=== PATIENT | female | born 1990 | race Two or more races ===

== ENCOUNTER 2024-11-17 18:06 | Emergency (ER) | payer MEDICAID, SELFPAY ==
[2024-11-17 18:43] VITALS: BP 100/64; PULSE 118; RESP 18; TEMP 37.3; O2SAT 99; BMI 20.3
--- NOTE | 2024-11-17 19:07 | EDNOTE_ITS ---
Upper Respiratory Inf. RME/HPI General Chief Complaint: Flu Like Symptoms Stated Complaint: FLU LIKE SYMPTOMS Time Seen by Provider: 11/17/24 19:03 Arrival date/time: 11/17/24 18:06 34F with no significant PMH presents to ED with several days of cough, body aches, and fevers/chills. Patient was diagnosed with the flu yesterday and states Tylenol, Tamiflu, and Promethazine aren't enough for body aches. Limitations: no limitations Related Data Previous Rx's ?Medication ?Instructions ?Recorded ibuprofen 400 mg tablet 400 mg PO TID PRN pain #14 t abs 07/03/22 loperamide 2 mg capsule (Imodium 2 mg PO Q6H PRN loose stool #14 01/03/23 A-D) caps ondansetron 4 mg disintegrating 4 mg PO Q8H PRN nausea and 01/03/23 tablet vomiting #10 tabs ibuprofen 400 mg tablet 400 mg PO Q8H PRN fever or p ain 11/17/24 #30 tabs Allergies Allergy/AdvReac Type Severity Reaction Status Date / Time No Known Allergies Allergy Verified 11/17/24 18:11 Review of Systems Review of Systems Systems Reviewed: All systems reviewed, normal except as documented Constitutional Constitutional: Reports as per HPI, Reports body ache(s), Reports chills, Reports fever(s) and Denies headache(s) ENT Ears, Nose, Mouth, and Throat: Denies disequilibrium and Denies headache(s) Cardiovascular Cardiovascular: Reports system reviewed and no additional complaints, except as documented, Denies chest pain and Denies dyspnea Respiratory Respiratory: Reports system reviewed and no additional complaints, except as documented, Reports as per HPI, Reports cough and Denies dyspnea Gastrointestinal Gastrointestinal: Reports system reviewed and no additional complaints, except as documented, Denies abdominal pain, Denies nausea and Denies vomiting Neurologic Neurologic: Reports system reviewed and no additional complaints, except as documented, Denies confusion, Denies disequilibrium and Denies headache(s) Psychiatric Psychiatric: Denies confusion Past Medical History Past Medical History CARDIAC: Negative Cardiac Disorders or Congestive Heart Failure RESPIRATORY: Negative Chronic Obstructive Pulmonary Disease (COPD) or Asthma GENITOURINARY: Negative Renal Disease ENDOCRINE: Negative Diabetes Mellitus Type 1 or Diabetes Mellitus Type 2 HEMATOLOGIC: Negative Sickle Cell Disease Social History SMOKING STATUS: Never smoker ED Exam General Limitations: Present no limitations General appearance: Present alert and in no apparent distress Head Head exam: Present atraumatic Eye Eye exam: Present normal appearance, PERRL and EOMI ENT ENT exam: Present normal exam, normal oropharynx and mucous membranes moist Neck Neck exam: Present normal inspection, full ROM and trachea midline Chest Chest inspection: Present normal inspection and symmetric chest wall rise Respiratory Respiratory exam: Present normal lung sounds bilaterally Cardiovascular Cardiovascular exam: Present regular rate, normal rhythm and normal heart sounds Abdominal Exam Abdominal exam: Present soft and normal bowel sounds Extremities Exam Extremities exam: Present normal inspection and full ROM Back Exam Back exam: Present normal inspection and full ROM Neurological Exam Neurological exam: Present alert, oriented X3 and CN II-XII intact Psychiatric Psychiatric exam: Present normal affect and normal mood Skin Skin exam: Present warm, dry, intact and normal color Course Quality Measures none Orders Category Date Time Status Ibuprofen Tab [Motrin Tab] Med 11/17/24 19:03 Discontinued 400 mg PO X1 ONE Vital Signs Vital signs: Vital Signs Temperature 99.2 F 11/17/24 18:43 Pulse Rate 118 H 11/17/24 18:43 Respiratory Rate 18 11/17/24 18:43 Blood Pressure 100/64 11/17/24 18:43 Pulse Oximetry (%) 99 11/17/24 18:43 Oxygen Delivery Method Room Air 11/17/24 18:43 O2 at 99% on RA and WNLs Upper Respiratory Infection MDM Narrative MDM Narrative:: 34F with no significant PMH presents to ED with several days of cough, body aches, and fevers/chills. Patient was diagnosed with the flu yesterday and states Tylenol, Tamiflu, and Promethazine aren't enough for body aches. Physical exam reveals nasal congestion, but clear lungs. Normal pupil response and EOM. No neck tenderness. ROM intact. Patient is afebrile, calm, and alert. Gait normal. NSAID education and meds given. Patient data External records reviewed:: [facility] previous records Clinical information provided by:: patient Social determinants that could affect healthcare access:: none Patient has the following chronic illnesses:: none How is presenting disease/condition affected by chronic disease/condition?: no chronic disease Evaluation data The following diagnostics were reviewed and interpreted by me:: other (specify) (none) Lab and/or radiology exams considered but not ordered:: not ordered Interpretation Summary: n/a Medications / Prescriptions Medications or Prescriptions considered but not ordered:: ordered Medication administrations:: Medication Administration History Discontinued Medications Ibuprofen (Ibuprofen Tab 400 Mg Tablet) 400 mg PO X1 ONE Stop: 11/17/24 19:04 above Consultations Consultation(s) initiated? (list below): No Diagnosis Upper Respiratory Differential Diagnosis: upper respiratory infection, croup, otitis media, sinusitis, viral infection, bronchitis, influenza and pharyngitis Most likely diagnosis given after review of the tests above:: influenza Admission Indicated Admission indicated?: not indicated Admission Request Was there a request for admission?: No Disposition Plan Disposition Plan: Discharge Discharge Attestation Discharge Attestation: The patient and all family members were given an opportunity to ask questions and understood the discharge instructions. Discharge instructions specifically effects, indications for sooner follow up or return to the emergency department, and the expected course of current diagnosis. Patient condition: Stable Discharge Plan Plan Patient Disposition: HOME (Self Care) Disposition Comment: Stable Prescriptions/Referrals Prescriptions/Med Rec: New ibuprofen 400 mg tablet 400 mg PO Q8H PRN (Reason: fever or pain) Qty: 30 0RF No Action ibuprofen 400 mg tablet 400 mg PO TID PRN (Reason: pain) Qty: 14 0RF loperamide [Imodium A-D] 2 mg capsule 2 mg PO Q6H PRN (Reason: loose stool) Qty: 14 0RF ondansetron 4 mg tablet,disintegrating 4 mg PO Q8H PRN (Reason: nausea and vomiting) Qty: 10 0RF Referrals: No Primary/Family,Physician [Primary Care Provider] - In 1 week Problem List Clinical Impression: Influenza Patient/Caregiver Discharge Instructions Education Materials: ED Influenza (Adult) Additional Instructions: Please follow-up with PCP within 24-48 hours and return immediately if symptoms worsen. Ibuprofen/Tylenol can be used simultaneously for greater fever/pain control. Print Language: Tajik Stand Alone Forms: Patient Portal Info Letter JUSTINA/NEELAM Supervising Physician JUSTINA/NEELAM Supervising Physician: Dr. Barroso
[2024-11-17] MEDS: IBUPROFEN TAB 400 MG TABLET PO (19:18)
== END 2024-11-17 19:27 | disposition home or self-care (01) ==
PROVIDERS: Emergency Provider Emergency Medicine
DX: J11.1 Influenza due to unidentified influenza virus with other respiratory manifestations (principal)
CPT/HCPCS: 99282; A9270

== ENCOUNTER 2025-01-04 00:31 | Emergency (ER) | payer SELFPAY ==
[2025-01-04 00:33] VITALS: BMI 17.5
--- NOTE | 2025-01-04 00:56 | XR_ITS ---
Examination: Foot, left, 3 views Technique: AP, oblique, lateral views foot, 3 views Date and time of exam: January 04, 2025 0148 hours INDICATIONS: Injury to the foot today, foot pain FINDINGS: No acute fracture No dislocation No foreign body IMPRESSION: No acute fracture
[2025-01-04 00:57] VITALS: BP 113/76; PULSE 79; RESP 16; TEMP 36.6; O2SAT 99
--- NOTE | 2025-01-04 03:27 | PRELIM_ITS ---
Radiographs of the left foot (three views). January 04, 2025 at 0148 hours Clinical History: Something fell on 1st and 2nd toes PT dropped something heavy on the toes. Comparison: No prior study is available for comparison. Findings: There is no evidence of fracture or dislocation. The visualized bones are of normal configuration and density. The visualized joints are normal in configuration and alignment. The periarticular soft tissues are normal. Impression: No evidence of fracture or dislocation. Report Electronically Signed By: Leon Veliz 01/04/2025 3:35:46 AM [EST]
--- NOTE | 2025-01-04 03:44 | PD.EDANKLE ---
Lower Extremity Injury RME/HPI General Chief Complaint: Ankle/Foot Injury Stated Complaint: RT FOOT INJURY, WORKMANS COMP Time Seen by Provider: 01/04/25 00:56 Arrival date/time: 01/04/25 00:31 34F with no significant PMH presents to ED with L 1st and 2nd toe pain after something heavy fell on it at work. Limitations: no limitations Related Data Previous Rx's ?Medication ?Instructions ?Recorded ibuprofen 400 mg tablet 400 mg PO TID PRN pain #14 tabs 07/03/22 loperamide 2 mg capsule (Imodium 2 mg PO Q6H PRN loose stool #14 01/03/23 A-D) caps ondansetron 4 mg disintegrating 4 mg PO Q8H PRN nausea and 01/03/23 tablet vomiting #10 tabs ibuprofen 400 mg tablet 400 mg PO Q8H PRN fever or pain 11/17/24 #30 tabs Allergies Allergy/AdvReac Type Severity Reaction Status Date / Time No Known Allergies Allergy Verified 11/17/24 18:11 Review of Systems Review of Systems Systems Reviewed: All systems reviewed, normal except as documented Constitutional Constitutional: Reports system reviewed and no additional complaints, except as documented, Denies fever(s) and Denies headache(s) ENT Ears, Nose, Mouth, and Throat: Denies disequilibrium and Denies headache(s) Cardiovascular Cardiovascular: Reports system reviewed and no additional complaints, except as documented, Denies chest pain and Denies dyspnea Respiratory Respiratory: Reports system reviewed and no additional complaints, except as documented, Denies cough and Denies dyspnea Gastrointestinal Gastrointestinal: Reports system reviewed and no additional complaints, except as documented, Denies abdominal pain, Denies nausea and Denies vomiting Musculoskeletal Musculoskeletal: Reports as per HPI and Reports arthralgias Neurologic Neurologic: Reports system reviewed and no additional complaints, except as documented, Denies confusion, Denies disequilibrium and Denies headache(s) Psychiatric Psychiatric: Denies confusion Past Medical History Past Medical History CARDIAC: Negative Cardiac Disorders or Congestive Heart Failure RESPIRATORY: Negative Chronic Obstructive Pulmonary Disease (COPD) or Asthma GENITOURINARY: Negative Renal Disease ENDOCRINE: Negative Diabetes Mellitus Type 1 or Diabetes Mellitus Type 2 HEMATOLOGIC: Negative Sickle Cell Disease Social History SMOKING STATUS: Never smoker ED Exam General Limitations: Present no limitations General appearance: Present alert and in no apparent distress Head Head exam: Present atraumatic Eye Eye exam: Present normal appearance, PERRL and EOMI ENT ENT exam: Present normal exam, normal oropharynx and mucous membranes moist Neck Neck exam: Present normal inspection, full ROM and trachea midline Chest Chest inspection: Present normal inspection and symmetric chest wall rise Respiratory Respiratory exam: Present normal lung sounds bilaterally Cardiovascular Cardiovascular exam: Present regular rate, normal rhythm and normal heart sounds Abdominal Exam Abdominal exam: Present soft and normal bowel sounds Extremities Exam Extremities exam: Present full ROM Expanded Lower Extremity Exam Foot/toe exam: Present full ROM (L 1st and 2nd toes), tenderness and swelling Back Exam Back exam: Present normal inspection and full ROM Neurological Exam Neurological exam: Present alert, oriented X3 and CN II-XII intact Psychiatric Psychiatric exam: Present normal affect and normal mood Skin Skin exam: Present warm, dry, intact and normal color Course Quality Measures none Orders Category Date Time Status Crutches .NOW Care 01/04/25 00:56 Active XR foot comp LT min 3V Stat Exams 01/04/25 00:56 Taken Vital Signs Vital signs: Vital Signs Temperature 97.8 F 01/04/25 00:57 Pulse Rate 79 01/04/25 00:57 Respiratory Rate 16 01/04/25 00:57 Blood Pressure 113/76 01/04/25 00:57 Pulse Oximetry (%) 99 01/04/25 00:57 Oxygen Delivery Method Room Air 01/04/25 00:57 O2 at 99% on RA and WNLs Extremity Injury, Lower MDM Narrative MDM Narrative:: 34F with no significant PMH presents to ED with L 1st and 2nd toe pain after something heavy fell on it at work. Physical exam reveals L 1st and 2nd toe tenderness and swelling. ROM mostly intact. Patient is afebrile, calm, and alert. XR no fx. Given rufina tape, crutch and community health counselor. Patient data External records reviewed:: [facility] previous records Clinical information provided by:: patient Social determinants that could affect healthcare access:: none Patient has the following chronic illnesses:: none How is presenting disease/condition affected by chronic disease/condition?: no chronic disease Evaluation data The following diagnostics were reviewed and interpreted by me:: radiology exam(s) Lab and/or radiology exams considered but not ordered:: ordered Interpretation Summary: above Medications / Prescriptions Medications or Prescriptions considered but not ordered:: not ordered Medication administrations:: n/a Consultations Consultation(s) initiated? (list below): No Diagnosis Extremity Injury, Lower Differential Diagnosis: ankle sprain and strain, acute internal derangement of knee, puncture wound of foot, fracture of toe, ankle fracture and other (foot contusion) Most likely diagnosis given after review of the tests above:: foot contusion Admission Indicated Admission indicated?: not indicated Admission Request Was there a request for admission?: No Disposition Plan Disposition Plan: Discharge Discharge Attestation Discharge Attestation: The patient and all family members were given an opportunity to ask questions and understood the discharge instructions. Discharge instructions specifically effects, indications for sooner follow up or return to the emergency department, and the expected course of current diagnosis. Patient condition: Stable Discharge Plan Plan Patient Disposition: HOME (Self Care) Disposition Comment: Stable Prescriptions/Referrals Prescriptions/Med Rec: No Action ibuprofen 400 mg tablet 400 mg PO TID PRN (Reason: pain) Qty: 14 0RF loperamide [Imodium A-D] 2 mg capsule 2 mg PO Q6H PRN (Reason: loose stool) Qty: 14 0RF ondansetron 4 mg tablet,disintegrating 4 mg PO Q8H PRN (Reason: nausea and vomiting) Qty: 10 0RF ibuprofen 400 mg tablet 400 mg PO Q8H PRN (Reason: fever or pain) Qty: 30 0RF Referrals: Justice Aguirre MD [Primary Care Provider] - In 1 week Problem List Clinical Impression: Contusion of foot Patient/Caregiver Discharge Instructions Education Materials: ED Foot Contusion Additional Instructions: Please follow-up with PCP within 24-48 hours and return immediately if symptoms worsen. If problem persists, recommend outpatient PT and/or MRI follow-up. In the meantime, rest, use ice/heat, and/or compression. Print Language: Vietnamese Stand Alone Forms: Patient Portal Info Letter JUSTINA/NEELAM Supervising Physician JUSTINA/NEELAM Supervising Physician: Dr. Ragsdale
== END 2025-01-04 03:55 | disposition home or self-care (01) ==
PROVIDERS: Emergency Provider Emergency Medicine; PCP Family Medicine
DX: S90.32XA Contusion of left foot, initial encounter (principal); W20.8XXA Other cause of strike by thrown, projected or falling object, initial encounter; Y99.0 Civilian activity done for income or pay
CPT/HCPCS: 73630; 99283

== ENCOUNTER 2025-02-27 08:16 | Emergency (ER) | payer MEDICAID, SELFPAY ==
[2025-02-27 08:25] VITALS: BP 122/79; PULSE 77; RESP 16; TEMP 36.7; O2SAT 98
--- NOTE | 2025-02-27 08:34 | PD.EDNV ---
Nausea/Vomit./Diarrhea-RME/HPI General Chief complaint: Abdominal Pain Stated complaint: ABD PAIN, DIARRHEA; [facility] YESTERDAY Time Seen by Provider: 02/27/25 08:21 Arrival date/time: 02/27/25 08:16 34-year-old female presents to the emergency department today for complaints of abdominal cramping, nausea and diarrhea patient reports with [facility] yesterday gave her a course of antibiotics for the flu patient reports he was checked for the flu as well strep throat yesterday both which came back negative patient was given a prescription for Augmentin Limitations: no limitations Related Data Previous Rx's ?Medication ?Instructions ?Recorded ibuprofen 400 mg tablet 400 mg PO TID PRN pain #14 tabs 07/03/22 loperamide 2 mg capsule (Imodium 2 mg PO Q6H PRN loose stool #14 01/03/23 A-D) caps ondansetron 4 mg disintegrating 4 mg PO Q8H PRN nausea and 01/03/23 tablet vomiting #10 tabs ibuprofen 400 mg tablet 400 mg PO Q8H PRN fever or pain 11/17/24 #30 tabs ibuprofen 400 mg tablet 400 mg PO Q8H PRN fever or pain 02/27/25 #30 tabs loperamide 2 mg capsule (Imodium 2 mg PO Q6H PRN loose stool #14 02/27/25 A-D) caps ondansetron 4 mg disintegrating 4 mg PO Q8H PRN nausea and 02/27/25 tablet vomiting #10 tabs Allergies Allergy/AdvReac Type Severity Reaction Status Date / Time No Known Allergies Allergy Verified 02/27/25 08:22 Review of Systems Review of Systems Systems Reviewed: All systems reviewed, normal except as documented Constitutional Constitutional: Reports system reviewed and no additional complaints, except as documented, Denies fever(s) and Denies headache(s) Eyes Eyes: Reports system reviewed and no additional complaints, except as documented and Denies blurry vision ENT Ears, Nose, Mouth, and Throat: Reports system reviewed and no additional complaints, except as documented, Denies headache(s), Denies nasal congestion and Denies nasal discharge Cardiovascular Cardiovascular: Reports system reviewed and no additional complaints, except as documented, Denies chest pain and Denies dyspnea Respiratory Respiratory: Reports system reviewed and no additional complaints, except as documented, Denies chest congestion, Denies cough and Denies dyspnea Gastrointestinal Gastrointestinal: Reports system reviewed and no additional complaints, except as documented, Reports abdominal pain, Reports cramping, Reports loose stools and Reports nausea Integumentary/Breasts Skin/Breast: Reports system reviewed and no additional complaints, except as documented and Denies rash Neurologic Neurologic: Reports system reviewed and no additional complaints, except as documented, Reports as per HPI and Denies headache(s) Past Medical History Past Medical History CARDIAC: Negative Cardiac Disorders or Congestive Heart Failure RESPIRATORY: Negative Chronic Obstructive Pulmonary Disease (COPD) or Asthma GENITOURINARY: Negative Renal Disease ENDOCRINE: Negative Diabetes Mellitus Type 1 or Diabetes Mellitus Type 2 HEMATOLOGIC: Negative Sickle Cell Disease Social History SMOKING STATUS: Never smoker ED Exam General Limitations: Present no limitations General appearance: Present alert and in no apparent distress Head Head exam: Present atraumatic, normocephalic and normal inspection Eye Eye exam: Present normal appearance, PERRL and EOMI ENT ENT exam: Present normal exam, normal oropharynx and mucous membranes moist Neck Neck exam: Present normal inspection, full ROM and trachea midline Chest Chest inspection: Present normal inspection and symmetric chest wall rise Respiratory Respiratory exam: Present normal lung sounds bilaterally; Absent respiratory distress Cardiovascular Cardiovascular exam: Present regular rate, normal rhythm and normal heart sounds Abdominal Exam Abdominal exam: Present soft and normal bowel sounds; Absent distention, tenderness, guarding, rebound, rigidity, Leach's sign, Rovsing's sign or tenderness at McBurney's Point Abdominal tenderness: Absent RLQ Extremities Exam Extremities exam: Present normal inspection and full ROM Back Exam Back exam: Present normal inspection and full ROM Neurological Exam Neurological exam: Present alert, oriented X3 and CN II-XII intact Psychiatric Psychiatric exam: Present normal affect and normal mood Skin Skin exam: Present warm, dry, intact and normal color Course Quality Measures none Orders Category Date Time Status Loperamide [Imodium] Med 02/27/25 08:34 Discontinued 4 mg PO X1 ONE Ondansetron Odt [Zofran Odt] Med 02/27/25 08:34 Discontinued 4 mg PO X1 ONE Vital Signs Vital signs: Vital Signs Temperature 98.0 F 02/27/25 08:25 Pulse Rate 77 02/27/25 08:25 Respiratory Rate 16 02/27/25 08:25 Blood Pressure 122/79 02/27/25 08:25 Pulse Oximetry (%) 98 02/27/25 08:25 Oxygen Delivery Method Room Air 02/27/25 08:25 O2 saturation 98% room air within normal limits Nausea/Vomiting/Diarrhea MDM Narrative MDM Narrative:: 34-year-old female presents to the emergency department today for complaints of abdominal cramping, nausea and diarrhea patient reports with [facility] yesterday gave her a course of antibiotics for the flu patient reports he was checked for the flu as well strep throat yesterday both which came back negative patient was given a prescription for Augmentin On exam patient well-appearing patient does not appear ill or toxic in no acute distress Based on symptomatology symptoms are highly consistent with viral illness Patient be given a course of Zofran as well as Imodium as well as ibuprofen Explained to the patient should her symptoms persist or worsen she is to return for reevaluation On exam patient has soft nontender abdomen Patient data External records reviewed:: [facility] previous records Clinical information provided by:: patient Social determinants that could affect healthcare access:: none Patient has the following chronic illnesses:: None How is presenting disease/condition affected by chronic disease/condition?: no chronic disease Evaluation data The following diagnostics were reviewed and interpreted by me:: other (specify) (N/A) Lab and/or radiology exams considered but not ordered:: Consider not ordered Interpretation Summary: N/A Medications / Prescriptions Medications / Prescriptions considered but not ordered:: Given Medication administrations:: Medication Administration History Discontinued Medications Loperamide HCl (Loperamide 2 Mg Capsule) 4 mg PO X1 ONE Stop: 02/27/25 08:35 Last Admin: 02/27/25 08:41 Dose: 4 mg Documented By: NATE Ondansetron HCl (Ondansetron Odt 4 Mg Tabrap) 4 mg PO X1 ONE; Protocol Stop: 02/27/25 08:35 Last Admin: 02/27/25 08:41 Dose: 4 mg Documented By: NATE Given Consultations Consultation(s) initiated? (list below): No Diagnosis Nausea Differential Diagnosis: traveler's diarrhea, food poisoning, gastroenteritis, clostridium difficile infection and drug-induced nausea and vomiting Most likely diagnosis given after review of the tests above:: Viral infection Admission Indicated Admission indicated?: not indicated Admission Request Was there a request for admission?: No Disposition Plan Disposition Plan: Discharge Discharge Attestation Discharge Attestation: The patient and all family members were given an opportunity to ask questions and understood the discharge instructions. Discharge instructions specifically effects, indications for sooner follow up or return to the emergency department, and the expected course of current diagnosis. Patient condition: Stable Discharge Plan Plan Patient Disposition: HOME (Self Care) Discharge Disposition comment: Stable Patient condition on transfer: Stable Prescriptions/Referrals Prescriptions/Med Rec: New ibuprofen 400 mg tablet 400 mg PO Q8H PRN (Reason: fever or pain) Qty: 30 0RF loperamide [Imodium A-D] 2 mg capsule 2 mg PO Q6H PRN (Reason: loose stool) Qty: 14 0RF ondansetron 4 mg tablet,disintegrating 4 mg PO Q8H PRN (Reason: nausea and vomiting) Qty: 10 0RF No Action ibuprofen 400 mg tablet 400 mg PO TID PRN (Reason: pain) Qty: 14 0RF loperamide [Imodium A-D] 2 mg capsule 2 mg PO Q6H PRN (Reason: loose stool) Qty: 14 0RF ondansetron 4 mg tablet,disintegrating 4 mg PO Q8H PRN (Reason: nausea and vomiting) Qty: 10 0RF ibuprofen 400 mg tablet 400 mg PO Q8H PRN (Reason: fever or pain) Qty: 30 0RF Problem List Clinical Impression: Viral infection Patient/Caregiver Discharge Instructions Education Materials: ED Viral Syndrome (Adult) Additional Instructions: Please follow up with your primary care doctor in the next 24-48hrs for any worsening symptoms return here immediately Print Language: Central African Stand Alone Forms: Bryanna Award Info., Work/School Release, Patient Portal Info Letter JUSTINA/NEELAM Supervising Physician JUSTINA/NEELAM Supervising Physician: Dr domínguez
[2025-02-27] MEDS: LOPERAMIDE 2 MG CAPSULE 4 MG PO (08:41)
[2025-02-27] MEDS: ONDANSETRON ODT 4 MG TABRAP PO (08:41)
== END 2025-02-27 08:51 | disposition home or self-care (01) ==
LOC: SERX 08:48
PROVIDERS: Emergency Provider Emergency Medicine; PCP Family Medicine
DX: B34.9 Viral infection, unspecified (principal)
CPT/HCPCS: 99282; Q0162; A9270

== ENCOUNTER 2025-03-20 00:27 | Emergency (ER) | payer MEDICAID, SELFPAY ==
[2025-03-20] VITALS (13 sets, daily range): BP systolic 95–112; BP diastolic 54–79; PULSE 63–75; RESP 12–24; TEMP 36.1–36.8; O2SAT 97–100
--- NOTE | 2025-03-20 01:45 | PD.EDABDPN ---
ED Abdominal Pain RME/HPI General Chief Complaint: Abdominal Pain Stated complaint: Abdominal pain Time seen by provider: 03/20/25 05:57 Arrival date/time: 03/20/25 00:27 RME / HPI RME / HPI narrative: Dr. Lewis?s Main ED Evaluation: 34yo female with a history of gastritis presents to the ED for a chief complaint of epigastric pain that radiates to her back. Patient states she took 4 of her gastritis medication today, reporting her abdominal pain worsened. Patient reports associated nausea, diarrhea, and a headache. Patient states she took 2 tablets of ibuprofen that did not improve her symptoms. Patient states she was unable to tolerate her headache and abdominal pain, so she came in for evaluation. Patient reports associated sweating. Patient denies any fever, chills, vomiting, dysuria or any other associated symptoms. NKA. Related Data Previous Rx's ?Medication ?Instructions ?Recorded ibuprofen 400 mg tablet 400 mg PO TID PRN pain #14 tabs 07/03/22 loperamide 2 mg capsule (Imodium 2 mg PO Q6H PRN loose stool #14 01/03/23 A-D) caps ondansetron 4 mg disintegrating 4 mg PO Q8H PRN nausea and 01/03/23 tablet vomiting #10 tabs ibuprofen 400 mg tablet 400 mg PO Q8H PRN fever or pain 11/17/24 #30 tabs ibuprofen 400 mg tablet 400 mg PO Q8H PRN fever or pain 02/27/25 #30 tabs loperamide 2 mg capsule (Imodium 2 mg PO Q6H PRN loose stool #14 02/27/25 A-D) caps ondansetron 4 mg disintegrating 4 mg PO Q8H PRN nausea and 02/27/25 tablet vomiting #10 tabs Allergies Allergy/AdvReac Type Severity Reaction Status Date / Time No Known Allergies Allergy Verified 02/27/25 08:22 Review of Systems Review of Systems Systems Reviewed: All systems reviewed, normal except as documented Past Medical History Past Medical History CARDIAC: Negative Cardiac Disorders or Congestive Heart Failure RESPIRATORY: Negative Chronic Obstructive Pulmonary Disease (COPD) or Asthma GENITOURINARY: Negative Renal Disease ENDOCRINE: Negative Diabetes Mellitus Type 1 or Diabetes Mellitus Type 2 HEMATOLOGIC: Negative Sickle Cell Disease Social History SMOKING STATUS: Never smoker ED Exam Narrative Physical exam: GENERAL APPEARANCE: alert and oriented x 4, well-developed, well-nourished, grimacing, holding forehead VITALS: All vitals were reviewed and the pulse ox is 100% on room air, which is normal according to my interpretation. HEENT: Normocephalic, atraumatic; pupils equal, round, reactive to light; EOMI; mucous membranes pink, moist; oropharynx clear NECK: Supple LUNGS: CTABL; no wheezes, no rales, no rhonchi HEART: Regular rate, regular rhythm; normal S1, S2; no murmurs ABDOMEN: non distended; normal BS; soft, no tenderness, no guarding, no rebound; no masses, no organomegaly, no hernia BACK: no CVA tenderness EXTREMITIES: atraumatic; no edema NEUROLOGIC: awake; alert and oriented x4; cranial nerves II-XII grossly intact; no focal sensory or motor deficits PSYCHIATRIC: appropriate mood and affect SKIN: warm, dry, normal color; no rashes Course Quality Measures none Orders Category Date Time Status Internet Marketing Analyst NOW Care 03/20/25 01:46 Active EKG (ED ONLY) *Do not use* NOW Care 03/20/25 01:[address] abdomen pelvis wo con Stat Exams 03/20/25 05:18 Completed EKG (ED Only) Stat Exams 03/20/25 01:46 Ordered CBC Stat Lab 03/20/25 01:10 Completed Comprehensive Metabolic Panel Stat Lab 03/20/25 01:10 Completed Drug Screen,Urine Stat Lab 03/20/25 04:10 Completed HCG Qualitative,Urine Stat Lab 03/20/25 04:10 Completed HCG,Qualitative Serum Stat Lab 03/20/25 04:15 Completed Lactate (Lactic Acid) Stat Lab 03/20/25 04:15 Completed Lipase Stat Lab 03/20/25 01:10 Completed Magnesium Stat Lab 03/20/25 01:10 Completed Troponin I Stat Lab 03/20/25 01:10 Completed Troponin I Stat Lab 03/20/25 04:15 Completed UA, C/S IF [Urinalysis, C/S if Indicated] Stat Lab 03/20/25 04:10 Completed KCL 10% Liq UDC 15 ML Med 03/20/25 03:18 Discontinued 40 meq PO X1 ONE Ketorolac Inj [Toradol Inj] Med 03/20/25 05:18 Discontinued 15 mg IVP X1 ONE Lidocaine 2% Viscous [Xylocaine 2% Viscous] Med 03/20/25 02:47 Discontinued 15 ml PO X1 ONE Morphine Inj Med 03/20/25 01:50 Discontinued 5 mg IVP X1 ONE Morphine Inj Med 03/20/25 03:30 Discontinued 5 mg IVP X1 ONE Ondansetron Inj [Zofran Inj] Med 03/20/25 01:50 Discontinued 4 mg IVP X1 ONE Sodium Chloride 0.9% 1000 ml [Ns] 1,000 ml Med 03/20/25 01:46 Discontinued IV 999 mls/hr Sodium Chloride 0.9% 1000 ml [Ns] 1,000 ml Med 03/20/25 05:17 Discontinued IV 999 mls/hr mg Hyd/Al Hyd/Judy Susp [Maalox Susp] Med 03/20/25 02:47 Discontinued 30 ml PO X1 ONE Reevaluation(s) Reevaluation #1: Patient states her pain is beginning to worsen. Additional dose of Morphine ordered. Time: 03:30 Reevaluation #2: Patient states she feels better, but is concerned about her pain becoming unmanagable at home. She states she feels generally weak and is requesting IVF. She notes her pain is now more at the LUQ and radiates to her back. CT abdomen pelvis without contrast and additional liter of IVF ordered. Time: 05:16 Vital Signs Vital signs: Vital Signs Pulse Rate 70 03/20/25 01:00 Respiratory Rate 24 H 03/20/25 01:00 Blood Pressure 103/69 03/20/25 01:00 Pulse Oximetry (%) 100 03/20/25 01:00 Abdominal Pain MDM MDM Narrative MDM Narrative:: Scribe Attestation: 03/20/25 Amber Wilkes am scribing for and in the presence of Dr. Lewis. Patient data External records reviewed:: [facility] previous records (Per chart review, patient was seen here on 02/27/25 for viral infection.) Clinical information provided by:: patient Social determinants that could affect healthcare access:: none Patient has the following chronic illnesses:: none How is presenting disease/condition affected by chronic disease/condition?: no chronic disease Evaluation data The following diagnostics were reviewed and interpreted by me:: lab results Lab and/or radiology exams considered but not ordered:: none Interpretation Summary: CBC, CMP, Lactate, Troponin, and Lipase are all normal. HCG negative. UA shows trace blood. Medications / Prescriptions Medications or Prescriptions considered but not ordered:: none Medication administrations:: Medication Administration History Discontinued Medications Al Hydrox/Mg Hydrox/Simethicone (Mg Hyd/Al Hyd/Judy (Maalox Reg) Susp 30 Ml Udc) 30 ml PO X1 ONE Stop: 03/20/25 02:48 Last Admin: 03/20/25 02:55 Dose: 30 ml Documented By: LUCAS Sodium Chloride (Ns) 1,000 mls @ 999 mls/hr IV .Q1H1M ONE Stop: 03/20/25 02:46 Last Infusion: 03/20/25 03:18 Dose: Infused Documented By: Admin: 03/20/25 02:15 Dose: 999 mls/hr Documented By: LUCAS Sodium Chloride (Ns) 1,000 mls @ 999 mls/hr IV .Q1H1M ONE Stop: 03/20/25 06:17 Last Infusion: 03/20/25 07:57 Dose: Infused Documented By: Admin: 03/20/25 05:28 Dose: 999 mls/hr Documented By: LUCAS Ketorolac Tromethamine (Ketorolac Inj 30 Mg/Ml Vial) 15 mg IVP X1 ONE Stop: 03/20/25 05:19 Last Admin: 03/20/25 05:27 Dose: 15 mg Documented By: LUCAS Lidocaine HCl (Lidocaine Viscous 2% 15 Ml Udc) 15 ml PO X1 ONE Stop: 03/20/25 02:48 Last Admin: 03/20/25 02:55 Dose: 15 ml Documented By: LUCAS Morphine Sulfate (Morphine Sulf Inj 10 Mg/Ml Vial) 5 mg IVP X1 ONE Stop: 03/20/25 01:51 Last Admin: 03/20/25 02:15 Dose: 5 mg Documented By: LUCAS Morphine Sulfate (Morphine Sulf Inj 10 Mg/Ml Vial) 5 mg IVP X1 ONE Stop: 03/20/25 03:31 Last Admin: 03/20/25 03:43 Dose: 5 mg Documented By: NAVID Ondansetron HCl (Ondansetron Inj 2 Mg/Ml Inj 2 Ml) 4 mg IVP X1 ONE Stop: 03/20/25 01:51 Last Admin: 03/20/25 02:16 Dose: 4 mg Documented By: LUCAS Potassium Chloride (Potassium Chloride 10% 20 Meq/15 Ml Udc) 40 meq PO X1 ONE Stop: 03/20/25 03:19 Last Admin: 03/20/25 04:28 Dose: 40 meq Documented By: LUCAS Comments: given late because pt was haveing severe epigastric pain. morphine given pain decreased and po potassium given. see above Consultations Consultation(s) initiated? (list below): No Diagnosis Differential diagnosis abdominal pain: pancreatitis and other (gastritis, kidney stone, pyelonephritis) Most likely diagnosis given after review of the tests above:: CT pending at sign out. Admission Indicated Admission indicated?: not indicated Admission Request Was there a request for admission?: No Disposition Plan Disposition Plan: other (specify) (Signed out to Dr. Peña at [address] abdomen pelvis and re-evaluation.) Discharge Plan Plan Patient Disposition: HOME (Self Care) Prescriptions/Referrals Prescriptions/Med Rec: No Action ibuprofen 400 mg tablet 400 mg PO TID PRN (Reason: pain) Qty: 14 0RF loperamide [Imodium A-D] 2 mg capsule 2 mg PO Q6H PRN (Reason: loose stool) Qty: 14 0RF ondansetron 4 mg tablet,disintegrating 4 mg PO Q8H PRN (Reason: nausea and vomiting) Qty: 10 0RF ibuprofen 400 mg tablet 400 mg PO Q8H PRN (Reason: fever or pain) Qty: 30 0RF ibuprofen 400 mg tablet 400 mg PO Q8H PRN (Reason: fever or pain) Qty: 30 0RF loperamide [Imodium A-D] 2 mg capsule 2 mg PO Q6H PRN (Reason: loose stool) Qty: 14 0RF ondansetron 4 mg tablet,disintegrating 4 mg PO Q8H PRN (Reason: nausea and vomiting) Qty: 10 0RF Referrals: Justice Aguirre MD [Primary Care Provider] - In 1 week Problem List Clinical Impression: Abdominal pain, Recurrent epigastric abdominal pain Patient/Caregiver Discharge Instructions Education Materials: Abdominal Pain Additional Instructions: As we discussed use [id number] liquid antacids to help your epigastric pain with meals. Use the acid yudelka as prescribed by your doctor. As we discussed ibuprofen can make stomach problems worse he should probably avoid this. Make an appoint to see your doctor in 1 to 2 days to get referred to the specialist as the recurring epigastric pain and weight loss she gets referred to a specialist where they can evaluate your stomach with a camera. Return if getting worse as we discussed Print Language: Chilean
[2025-03-20] MEDS: MORPHINE SULF INJ 10 MG/ML VIAL 5 MG IVP ×2 (02:15→03:43)
[2025-03-20] MEDS: SODIUM CHLORIDE 0.9% 1000 ML 1,000 ML 999 ML IV ×2 (02:15→05:28)
[2025-03-20] MEDS: ONDANSETRON INJ 2 MG/ML INJ 2 ML 4 MG IVP (02:16)
[2025-03-20 02:17] LABS: Basophils % (Auto) 0 % (0-2.5); Eosinophils % (Auto) 1 % (0-10); Hematocrit 34.2 % (36.0-46.0); Hemoglobin 11.4 g/dL (12.0-16.0); Immature Granulocytes % (Auto) 0 % (0-0); Immature Granulocytes Auto 0.01 Thou/mm3 (0.00-0.00); Lymphocytes # (Auto) 2.4 Thou/mm3 (1.0-4.8); Lymphocytes % (Auto) 38 % (10-50); Mean Corpuscular HGB Conc 33.3 g/dl (31.0-37.0); Mean Corpuscular Hemoglobin 24.6 pg (25.0-35.0); Mean Corpuscular Volume 74 fL (80-100); Monocytes # (Auto) 0.6 Thou/mm3 (0.0-0.8); Monocytes % (Auto) 9 % (0-12); Neutrophils # (Auto) 3.2 Thou/mm3 (1.8-7.7); Neutrophils % (Auto) 51 % (37-80); Nucleated Red Blood Cell % 0 /100 WBC (0); Platelet Count 386 Thou/mm3 (140-440); RDW Standard Deviation 41.8 fL (36.4-46.3); Red Blood Count 4.64 Miln/mm3 (4.00-5.20); White Blood Count 6.3 Thou/mm3 (3.6-11.0)
[2025-03-20 02:39] LABS: Alanine Aminotransferase 41 U/L (10-49); Albumin, Serum 4.8 gm/dL (3.5-5.0); Albumin/Globulin Ratio 1.3 (1.2-2.2); Alkaline Phosphatase 109 U/L (46-116); Anion Gap 13 (7-16); BUN/Creatinine Ratio 13 Ratio (12-20); Bilirubin,Total 0.2 mg/dL (0.3-1.2); Blood Urea Nitrogen 8 mg/dL (9-23); Calcium 9.3 mg/dL (8.3-10.6); Calcium (Corrected) 9.3 mg/dL (8.5-10.1); Carbon Dioxide 22.3 mMol/L (20.0-31.0); Chloride 108 mMol/L (98-107); Creatinine (Component) 0.6 mg/dL (0.6-1.3); Globulin 3.8 gm/dL (2.3-3.5); Glucose 89 mg/dL (74-106); Lipase 36 U/L (12-53); Magnesium 1.8 mg/dL (1.6-2.6); Osmolality,Calculated 282 (275-295); Sodium 143 mMol/L (136-145); Total Protein 8.6 gm/dL (5.7-8.2); Troponin I < 0.002 ng/mL (0.0-0.045); eGFR > 60 See Note
[2025-03-20] MEDS: LIDOCAINE VISCOUS 2% 15 ML UDC PO (02:55)
[2025-03-20] MEDS: MG HYD/AL HYD/SIME (Maalox Reg) SUSP 30 ML UDC PO (02:55)
[2025-03-20 04:26] LABS: Collection Type, Urine Clean Catch
[2025-03-20] MEDS: POTASSIUM CHLORIDE 10% 20 MEQ/15 ML UDC 40 MEQ PO (04:28)
[2025-03-20 04:46] LABS: Bilirubin,Urine Negative (Negative); Blood,Urine Trace (Negative); Clarity,Urine Clear (Clear/Hazy); Color,Urine Colorless (Lt Yel-Yel); Culture Indicated,Urine Not Indicated; Glucose, Urine Negative (Negative); HCG Qualitative,Urine Negative; Ketones,Urine Negative (Negative); Leukocyte Esterase,Urine Negative (Negative); Nitrite,Urine Negative (Negative); Protein,Urine Negative (Neg - Trace); RBC,Urine 2 /hpf (0-3); Specific Gravity,Urine 1.013 (1.001-1.035); Squamous Epithelial Cell,Urine 1 /hpf (0-5); Urobilinogen,Urine Negative mg/dL (0.0-1.0); WBC,Urine 1 /hpf (0-5)
[2025-03-20 04:48] LABS: HCG,Qualitative Serum Negative
[2025-03-20 04:53] LABS: Troponin I < 0.002 ng/mL (0.0-0.045)
[2025-03-20 04:57] LABS: Amphetamine/Methamp Scrn,U Negative (Negative); Barbiturate Screen,Urine Negative (Negative); Benzodiazepines Screen,Urine Negative (Negative); Benzoylecgonine Screen, Ur Negative (Negative); Fentanyl Screen,Urine Negative (Negative); Opiate Screen,Urine Positive (Negative); THC Screen,Urine Negative (Negative)
--- NOTE | 2025-03-20 05:18 | XR_ITS ---
Examination: CT abdomen and pelvis without contrast. Coronal 3-D reconstructions. Sagittal 2-D reconstructions. Date and time of exam:March 20, 2025 0557 hours INDICATIONS: Onset left flank pain COMPARISON: June 02, 2024 CTDI: vol (mGy): 4.53 DLP: (mGycm): 220 Technique: Axial images of the abdomen have been obtained, 3 mm slice thickness Intravenous contrast material has not been administered. Low dose protocols were performed. One or more of the following dose reduction techniques were used; automated exposure control, adjustment of the mA and/or KV according to patient size, use of iterative reconstruction technique. Findings: No focal liver or splenic lesions No gallstones No pancreatic or adrenal mass No renal or ureteral calculi, no hydronephrosis Aorta normal size Small fat-containing umbilical hernia No pericecal inflammatory change Anteverted uterus with mildly enlarged fundus No bladder mass or bladder calculi. Osseous structures are intact IMPRESSION: No renal or ureteral calculi, no hydronephrosis No bladder mass or bladder calculi
[2025-03-20] MEDS: KETOROLAC INJ 30 MG/ML VIAL 15 MG IVP (05:27)
--- NOTE | 2025-03-20 08:22 | PC.NURSE ---
Assumed care of patient whom is alert and oriented, laying in gurney with eyes closed. Patient responds to name and c/o head and abd pain 04/18. Patient updated on plan of care and call light is within reach.
--- NOTE | 2025-03-20 09:13 | EDNOTE_ITS ---
Emergency Room Addendum <Kayla Camejo - Last Filed: 03/20/25 09:16> Addendum Narrative: 0600: Care assumed from Dr. Lewis, the previous shift emergency physician. Past medical, surgical, social and family history reviewed. Vitals and home medications reviewed. I will assume the care of the patient at this time, pending abdomen/pelvis CT and final disposition. Please refer to the emergency department record for history and examination from initial visit.? Physical exam by me shows patient under no acute distress at this time. Patient comes in with chronic abdominal pain. Today, her abdomen/pelvis CT was negative. She will follow up with her PCP at [facility] to rule out gastritis. <Delfin Peña MD - Last Filed: 03/20/25 09:19> Addendum Narrative: 0600: Care assumed from Dr. Lewis, the previous shift emergency physician. Past medical, surgical, social and family history reviewed. Vitals and home medications reviewed. I will assume the care of the patient at this time, pending abdomen/pelvis CT and final disposition. Please refer to the emergency department record for history and examination from initial visit.? Physical exam by me shows patient under no acute distress at this time. Patient comes in with chronic abdominal pain. Today, her abdomen/pelvis CT was negative. She will follow up with her PCP at [facility] to rule out gastritis. Recheck of the abdomen after coming back from the CT scanner reveals a soft and benign belly with some very vague epigastric discomfort. There are no peritoneal signs. CT scan was entirely negative. Review of the old charts reveals a similar pattern of visits where she has been told that she has gastritis. But she has not been referred to a specialist nor has she been sco ped. She states that spicy foods and certain foods irritate her stomach quite quickly. She is already on antacids and was encouraged to get liquid antacid [id number]-[id number] and follow-up with her doctor in 1 to 2 days for reevaluation of her epigastric symptoms. She knows return if getting worse. She denies any vomiting of blood or blood in her stool. Is concerned that she reports weight loss and again she was instructed to contact her doctor so they can address this and her symptoms. Results <Kayla Camejo - Last Filed: 03/20/25 09:16> Objective Laboratory: Laboratory Last Values WBC 6.3 Thou/mm3 (3.6-11.0) 03/20/25 01:10 RBC 4.64 Miln/mm3 (4.00-5.20) 03/20/25 01:10 Hgb 11.4 g/dL (12.0-16.0) L 03/20/25 01:10 Hct 34.2 % (36.0-46.0) L 03/20/25 01:10 MCV 74 fL (80-100) L 03/20/25 01:10 MCH 24.6 pg (25.0-35.0) L 03/20/25 01:10 MCHC 33.3 g/dl (31.0-37.0) 03/20/25 01:10 RDW Std Deviation 41.8 fL (36.4-46.3) 03/20/25 01:10 Plt Count 386 Thou/mm3 (140-440) 03/20/25 01:10 Neut % (Auto) 51 % (37-80) 03/20/25 01:10 Lymph % (Auto) 38 % (10-50) 03/20/25 01:10 [place] % (Auto) 9 % (0-12) 03/20/25 01:10 Eos % (Auto) 1 % (0-10) 03/20/25 01:10 Baso % (Auto) 0 % (0-2.5) 03/20/25 01:10 Neut # (Auto) 3.2 Thou/mm3 (1.8-7.7) 03/20/25 01:10 Lymph # (Auto) 2.4 Thou/mm3 (1.0-4.8) 03/20/25 01:10 [place] # (Auto) 0.6 Thou/mm3 (0.0-0.8) 03/20/25 01:10 Eos # (Auto) 0.0 Thou/mm3 (0.0-0.5) 03/20/25 01:10 Baso # (Auto) 0.0 Thou/mm3 (0.0-0.2) 03/20/25 01:10 Immature Gran # (Auto) 0.01 Thou/mm3 (0.00-0.00) H 03/20/25 01:10 Absolute Nucleated RBC 0.00 Thou/mm3 (0.00-0.00) 03/20/25 01:10 Immature Gran % 0 % (0-0) 03/20/25 01:10 Nucleated RBC % 0 /100 WBC (0) 03/20/25 01:10 Sodium 143 mMol/L (136-145) 03/20/25 01:10 Potassium 3.0 mMol/L (3.4-5.1) L 03/20/25 01:10 Chloride 108 mMol/L (98-107) H 03/20/25 01:10 Carbon Dioxide 22.3 mMol/L (20.0-31.0) 03/20/25 01:10 Anion Gap 13 (7-16) 03/20/25 01:10 BUN 8 mg/dL (9-23) L 03/20/25 01:10 Creatinine 0.6 mg/dL (0.6-1.3) 03/20/25 01:10 Estim Creat Clear Calc Not Performed. 03/20/25 01:10 eGFR > 60 See Note (60-) 03/20/25 01:10 BUN/Creatinine Ratio 13 Ratio (12-20) 03/20/25 01:10 Glucose 89 mg/dL (74-106) 03/20/25 01:10 Calculated Osmolality 282 (275-295) 03/20/25 01:10 Lactic Acid 1.0 mMol/L (0.4-2.0) 03/20/25 04:15 Calcium 9.3 mg/dL (8.3-10.6) 03/20/25 01:10 Corrected Calcium 9.3 mg/dL (8.5-10.1) 03/20/25 01:10 Magnesium 1.8 mg/dL (1.6-2.6) 03/20/25 01:10 Total Bilirubin 0.2 mg/dL (0.3-1.2) L 03/20/25 01:10 ALT 41 U/L (10-49) 03/20/25 01:10 Alkaline Phosphatase 109 U/L (46-116) 03/20/25 01:10 Troponin I < 0.002 ng/mL (0.0-0.045) 03/20/25 04:15 Total Protein 8.6 gm/dL (5.7-8.2) H 03/20/25 01:10 Albumin 4.8 gm/dL (3.5-5.0) 03/20/25 01:10 Globulin 3.8 gm/dL (2.3-3.5) H 03/20/25 01:10 Albumin/Globulin Ratio 1.3 (1.2-2.2) 03/20/25 01:10 Lipase 36 U/L (12-53) 03/20/25 01:10 HCG, Qual Negative 03/20/25 04:15 Ur Collection Type Clean Catch 03/20/25 04:10 Urine Color Colorless (Lt Yel-Yel) A 03/20/25 04:10 Urine Clarity Clear (Clear/Hazy) 03/20/25 04:10 Urine pH 6.0 (5.0-7.0) 03/20/25 04:10 Ur Specific [place] 1.013 (1.001-1.035) 03/20/25 04:10 Urine Protein Negative (Neg - Trace) 03/20/25 04:10 Urine Glucose (UA) Negative (Negative) 03/20/25 04:10 Urine Ketones Negative (Negative) 03/20/25 04:10 Urine Blood Trace (Negative) 03/20/25 04:10 Urine Nitrite Negative (Negative) 03/20/25 04:10 Urine Bilirubin Negative (Negative) 03/20/25 04:10 Urine Urobilinogen (Auto) Negative mg/dL (0.0-1.0) 03/20/25 04:10 Ur Leukocyte Esterase Negative (Negative) 03/20/25 04:10 Urine RBC 2 /hpf (0-3) 03/20/25 04:10 Urine WBC 1 /hpf (0-5) 03/20/25 04:10 Ur Squamous Epith Cells 1 /hpf (0-5) 03/20/25 04:10 Urine Bacteria None (None) 03/20/25 04:10 Ur Culture Indicated? Not Indicated 03/20/25 04:10 Urine HCG, Qual Negative 03/20/25 04:10 Urine Opiates Screen Positive (Negative) A 03/20/25 04:10 Urine Fentanyl Screen Negative (Negative) 03/20/25 04:10 Ur Barbiturates Screen Negative (Negative) 03/20/25 04:10 U Amphetamin/Meth Scrn Negative (Negative) 03/20/25 04:10 U Benzodiazepines Scrn Negative (Negative) 03/20/25 04:10 U Cocaine Metab Screen Negative (Negative) 03/20/25 04:10 U Marijuana (THC) Screen Negative (Negative) 03/20/25 04:10 Imaging: Procedure(s): CT abdomen pelvis wo con Accession Number(s): [id number] cc: Justice Aguirre MD; Rodolfo Motley MD; Sophia Lewis MD~ Examination: CT abdomen and pelvis without contrast. Coronal 3-D reconstructions. Sagittal 2-D reconstructions. Date and time of exam:March 20, 2025 0557 hours INDICATIONS: Onset left flank pain COMPARISON: June 02, 2024 CTDI: vol (mGy): 4.53 DLP: (mGycm): 220 Technique: Axial images of the abdomen have been obtained, 3 mm slice thickness Intravenous contrast material has not been administered. Low dose protocols were performed. One or more of the following dose reduction techniques were used; automated exposure control, adjustment of the mA and/or KV according to patient size, use of iterative reconstruction technique. Findings: No focal liver or splenic lesions No gallstones No pancreatic or adrenal mass No renal or ureteral calculi, no hydronephrosis Aorta normal size Small fat-containing umbilical hernia No pericecal inflammatory change Anteverted uterus with mildly enlarged fundus No bladder mass or bladder calculi. Osseous structures are intact IMPRESSION: No renal or ureteral calculi, no hydronephrosis No bladder mass or bladder calculi Dictated By: Rodolfo Motley MD <Delfin Peña MD - Last Filed: 03/20/25 09:19> Objective Laboratory: Laboratory Last Values WBC 6.3 Thou/mm3 (3.6-11.0) 03/20/25 01:10 RBC 4.64 Miln/mm3 (4.00-5.20) 03/20/25 01:10 Hgb 11.4 g/dL (12.0-16.0) L 03/20/25 01:10 Hct 34.2 % (36.0-46.0) L 03/20/25 01:10 MCV 74 fL (80-100) L 03/20/25 01:10 MCH 24.6 pg (25.0-35.0) L 03/20/25 01:10 MCHC 33.3 g/dl (31.0-37.0) 03/20/25 01:10 RDW Std Deviation 41.8 fL (36.4-46.3) 03/20/25 01:10 Plt Count 386 Thou/mm3 (140-440) 03/20/25 01:10 Neut % (Auto) 51 % (37-80) 03/20/25 01:10 Lymph % (Auto) 38 % (10-50) 03/20/25 01:10 [place] % (Auto) 9 % (0-12) 03/20/25 01:10 Eos % (Auto) 1 % (0-10) 03/20/25 01:10 Baso % (Auto) 0 % (0-2.5) 03/20/25 01:10 Neut # (Auto) 3.2 Thou/mm3 (1.8-7.7) 03/20/25 01:10 Lymph # (Auto) 2.4 Thou/mm3 (1.0-4.8) 03/20/25 01:10 [place] # (Auto) 0.6 Thou/mm3 (0.0-0.8) 03/20/25 01:10 Eos # (Auto) 0.0 Thou/mm3 (0.0-0.5) 03/20/25 01:10 Baso # (Auto) 0.0 Thou/mm3 (0.0-0.2) 03/20/25 01:10 Immature Gran # (Auto) 0.01 Thou/mm3 (0.00-0.00) H 03/20/25 01:10 Absolute Nucleated RBC 0.00 Thou/mm3 (0.00-0.00) 03/20/25 01:10 Immature Gran % 0 % (0-0) 03/20/25 01:10 Nucleated RBC % 0 /100 WBC (0) 03/20/25 01:10 Sodium 143 mMol/L (136-145) 03/20/25 01:10 Potassium 3.0 mMol/L (3.4-5.1) L 03/20/25 01:10 Chloride 108 mMol/L (98-107) H 03/20/25 01:10 Carbon Dioxide 22.3 mMol/L (20.0-31.0) 03/20/25 01:10 Anion Gap 13 (7-16) 03/20/25 01:10 BUN 8 mg/dL (9-23) L 03/20/25 01:10 Creatinine 0.6 mg/dL (0.6-1.3) 03/20/25 01:10 Estim Creat Clear Calc Not Performed. 03/20/25 01:10 eGFR > 60 See Note (60-) 03/20/25 01:10 BUN/Creatinine Ratio 13 Ratio (12-20) 03/20/25 01:10 Glucose 89 mg/dL (74-106) 03/20/25 01:10 Calculated Osmolality 282 (275-295) 03/20/25 01:10 Lactic Acid 1.0 mMol/L (0.4-2.0) 03/20/25 04:15 Calcium 9.3 mg/dL (8.3-10.6) 03/20/25 01:10 Corrected Calcium 9.3 mg/dL (8.5-10.1) 03/20/25 01:10 Magnesium 1.8 mg/dL (1.6-2.6) 03/20/25 01:10 Total Bilirubin 0.2 mg/dL (0.3-1.2) L 03/20/25 01:10 ALT 41 U/L (10-49) 03/20/25 01:10 Alkaline Phosphatase 109 U/L (46-116) 03/20/25 01:10 Troponin I < 0.002 ng/mL (0.0-0.045) 03/20/25 04:15 Total Protein 8.6 gm/dL (5.7-8.2) H 03/20/25 01:10 Albumin 4.8 gm/dL (3.5-5.0) 03/20/25 01:10 Globulin 3.8 gm/dL (2.3-3.5) H 03/20/25 01:10 Albumin/Globulin Ratio 1.3 (1.2-2.2) 03/20/25 01:10 Lipase 36 U/L (12-53) 03/20/25 01:10 HCG, Qual Negative 03/20/25 04:15 Ur Collection Type Clean Catch 03/20/25 04:10 Urine Color Colorless (Lt Yel-Yel) A 03/20/25 04:10 Urine Clarity Clear (Clear/Hazy) 03/20/25 04:10 Urine pH 6.0 (5.0-7.0) 03/20/25 04:10 Ur Specific [place] 1.013 (1.001-1.035) 03/20/25 04:10 Urine Protein Negative (Neg - Trace) 03/20/25 04:10 Urine Glucose (UA) Negative (Negative) 03/20/25 04:10 Urine Ketones Negative (Negative) 03/20/25 04:10 Urine Blood Trace (Negative) 03/20/25 04:10 Urine Nitrite Negative (Negative) 03/20/25 04:10 Urine Bilirubin Negative (Negative) 03/20/25 04:10 Urine Urobilinogen (Auto) Negative mg/dL (0.0-1.0) 03/20/25 04:10 Ur Leukocyte Esterase Negative (Negative) 03/20/25 04:10 Urine RBC 2 /hpf (0-3) 03/20/25 04:10 Urine WBC 1 /hpf (0-5) 03/20/25 04:10 Ur Squamous Epith Cells 1 /hpf (0-5) 03/20/25 04:10 Urine Bacteria None (None) 03/20/25 04:10 Ur Culture Indicated? Not Indicated 03/20/25 04:10 Urine HCG, Qual Negative 03/20/25 04:10 Urine Opiates Screen Positive (Negative) A 03/20/25 04:10 Urine Fentanyl Screen Negative (Negative) 03/20/25 04:10 Ur Barbiturates Screen Negative (Negative) 03/20/25 04:10 U Amphetamin/Meth Scrn Negative (Negative) 03/20/25 04:10 U Benzodiazepines Scrn Negative (Negative) 03/20/25 04:10 U Cocaine Metab Screen Negative (Negative) 03/20/25 04:10 U Marijuana (THC) Screen Negative (Negative) 03/20/25 04:10
== END 2025-03-20 10:02 | disposition home or self-care (01) ==
PROVIDERS: Emergency Medicine; Emergency Provider Emergency Medicine; PCP Family Medicine
DX: R10.13 Epigastric pain (principal); R11.2 Nausea with vomiting, unspecified; R19.7 Diarrhea, unspecified; R51.9 Headache, unspecified
CPT/HCPCS: 36415; 74176; 80053; 80307; 81001; 81025; 83605; 83690; 83735; 84484; 84703; 85025; 93005; 96361; 96374; 96375; 96376; 99284; J1885; J2270; J2405; J3490; J7030; A9270

== ENCOUNTER 2025-06-22 12:08 | Emergency (ER) | payer MEDICAID, SELFPAY ==
[2025-06-22 12:47] VITALS: BP 103/72; PULSE 97; RESP 18; TEMP 37.1; O2SAT 97; BMI 18.2
--- NOTE | 2025-06-22 12:47 | XR_ITS ---
Examination: Cervical spine 3 views Technique: AP lateral coned AP odontoid cervical spine 3 views Date and time: June 22, 2025, 1256 hrs. Indications: Lifting injury to the neck today with neck and shoulder pain. Findings: Satisfactory alignment cervical vertebral bodies. No cervical fracture. Intact odontoid Impression: No acute cervical fracture
[2025-06-22] MEDS: ONDANSETRON ODT 4 MG TABRAP PO (13:10)
[2025-06-22] MEDS: ACETAMINOPHEN 325 MG TABLET 650 MG PO (13:10)
[2025-06-22] MEDS: FAMOTIDINE 20 MG TABLET PO (13:10)
--- NOTE | 2025-06-22 13:29 | EDNOTE_ITS ---
ED Neck Injury Pain RME/HPI General Chief Complaint: Extremity Injury, Upper Stated Complaint: RIGHT NECK PAIN Time Seen by Provider: 06/22/25 12:20 Arrival date/time: 06/22/25 12:08 Limitations: no limitations RME / HPI RME / HPI Narrative: Patient is a 34-year-old female who was lifting a heavy container of water and felt pain in her right neck. Patient has a history of gastritis and took Motrin 600 mg x 2. She complains of pain after taking the Motrin. MD complaint: neck pain and neck injury Onset (ago): hour(s) Place: work Severity: moderate Severity scale (1-10): 5 Quality: aching Duration: constant Relieving factors: none Exacerbating factors: other (Movement of the right neck) Context: lifting Associated symptoms: none Treatments prior to arrival: ibuprofen Related Data Previous Rx's ?Medication ?Instructions ?Recorded ibuprofen 400 mg tablet 400 mg PO TID PRN pain #14 t abs 07/03/22 loperamide 2 mg capsule (Imodium 2 mg PO Q6H PRN loose stool #14 01/03/23 A-D) caps ondansetron 4 mg disintegrating 4 mg PO Q8H PRN nausea and 01/03/23 tablet vomiting #10 tabs ibuprofen 400 mg tablet 400 mg PO Q8H PRN fever or p ain 11/17/24 #30 tabs ibuprofen 400 mg tablet 400 mg PO Q8H PRN fever or p ain 02/27/25 #30 tabs loperamide 2 mg capsule (Imodium 2 mg PO Q6H PRN loose stool #14 02/27/25 A-D) caps ondansetron 4 mg disintegrating 4 mg PO Q8H PRN nausea and 02/27/25 tablet vomiting #10 tabs Allergies Allergy/AdvReac Type Severity Reaction Status Date / Time No Known Allergies Allergy Verified 06/22/25 12:14 Review of Systems Review of Systems Systems Reviewed: All systems reviewed, normal except as documented Past Medical History Past Medical History CARDIAC: Negative Cardiac Disorders or Congestive Heart Failure RESPIRATORY: Negative Chronic Obstructive Pulmonary Disease (COPD) or Asthma GENITOURINARY: Negative Renal Disease ENDOCRINE: Negative Diabetes Mellitus Type 1 or Diabetes Mellitus Type 2 HEMATOLOGIC: Negative Sickle Cell Disease Social History SMOKING STATUS: Never smoker ED Exam General Limitations: Present no limitations General appearance: Present alert and in no apparent distress Head Head exam: Present atraumatic Eye Eye exam: Present normal appearance, PERRL and EOMI ENT ENT exam: Present normal exam, normal oropharynx and mucous membranes moist Neck Neck exam: Present normal inspection, trachea midline and tenderness (Patient has tenderness to palpation right lateral lower neck and at the insertion of the trapezius. There are trigger points present at the lateral neck muscles and also trapezius again on the right.) Chest Chest inspection: Present normal inspection and symmetric chest wall rise Respiratory Respiratory exam: Present normal lung sounds bilaterally Cardiovascular Cardiovascular exam: Present regular rate, normal rhythm and normal heart sounds Abdominal Exam Abdominal exam: Present soft and normal bowel sounds Extremities Exam Extremities exam: Present normal inspection and full ROM Back Exam Back exam: Present normal inspection and full ROM Neurological Exam Neurological exam: Present alert, oriented X3 and CN II-XII intact Psychiatric Psychiatric exam: Present normal affect and normal mood Skin Skin exam: Present warm, dry, intact and normal color Course Course Course Narrative: Patient had C-spine 2-3 views done which was negative for any fracture or abnormality. Acetaminophen and famotidine were given as well as Zofran. Quality Measures none Orders Category Date Time Status XR cervical spine 2-3V Stat Exams 06/22/25 12:47 Completed HCG Qualitative,Urine Stat Lab 06/22/25 13:30 Completed Acetaminophen Tab [Tylenol Tab] Med 06/22/25 12:47 Discontinued 650 mg PO X1 ONE Famotidine [Pepcid] Med 06/22/25 12:47 Discontinued 20 mg PO X1 ONE Ondansetron Odt [Zofran Odt] Med 06/22/25 12:47 Discontinued 4 mg PO X1 ONE Vital Signs Vital signs: Vital Signs Temperature 98.8 F 06/22/25 12:47 Pulse Rate 97 06/22/25 12:47 Respiratory Rate 18 06/22/25 12:47 Blood Pressure 103/72 06/22/25 12:47 Pulse Oximetry (%) 97 06/22/25 12:47 Oxygen Delivery Method Room Air 06/22/25 12:47 Neck Pain MDM Narrative MDM Narrative:: Patient lifted heavy object and strained her muscles of the right neck and insertion of the trapezius by the neck. X-rays were negative for fracture in the C-spine. Patient data External records reviewed:: None Clinical information provided by:: patient Social determinants that could affect healthcare access:: none Patient has the following chronic illnesses:: None How is presenting disease/condition affected by chronic disease/condition?: no chronic disease Evaluation data The following diagnostics were reviewed and interpreted by me:: radiology exam(s) Lab and/or radiology exams considered but not ordered:: C-spine x-rays 3 views were negative for fracture Interpretation Summary: C-spine negative for fracture Medications / Prescriptions Medications or Prescriptions considered but not ordered:: Hydrocodone Medication administrations:: Medication Administration History Discontinued Medications Acetaminophen (Acetaminophen 325 Mg Tablet) 650 mg PO X1 ONE Stop: 06/22/25 12:48 Last Admin: 06/22/25 13:10 Dose: 650 mg Documented By: GINGER Famotidine (Famotidine 20 Mg Tablet) 20 mg PO X1 ONE Stop: 06/22/25 12:48 Last Admin: 06/22/25 13:10 Dose: 20 mg Documented By: GINGER Ondansetron HCl (Ondansetron Odt 4 Mg Tabrap) 4 mg PO X1 ONE; Protocol Stop: 06/22/25 12:48 Last Admin: 06/22/25 13:10 Dose: 4 mg Documented By: GINGER As above Consultations Consultation(s) initiated? (list below): No Diagnosis Neck Differential Diagnosis: disc disorder of cervical region, whiplash injury to neck, closed subluxation of cervical spine, fracture of cervical spine without lesion of spinal cord, cervical radiculopathy, cervical spondylosis and strain of neck muscle Most likely diagnosis given after review of the tests above:: Musculoskeletal sprain, neck pain Admission Indicated Admission indicated?: not indicated Admission Request Was there a request for admission?: No Disposition Plan Disposition Plan: Discharge Discharge Attestation Discharge Attestation: The patient and all family members were given an opportunity to ask questions and understood the discharge instructions. Discharge instructions specifically effects, indications for sooner follow up or return to the emergency department, and the expected course of current diagnosis. Patient condition: Stable Discharge Plan Plan Patient Disposition: HOME (Self Care) Patient condition on transfer: Stable Prescriptions/Referrals Prescriptions/Med Rec: No Action ibuprofen 400 mg tablet 400 mg PO TID PRN (Reason: pain) Qty: 14 0RF loperamide [Imodium A-D] 2 mg capsule 2 mg PO Q6H PRN (Reason: loose stool) Qty: 14 0RF ondansetron 4 mg tablet,disintegrating 4 mg PO Q8H PRN (Reason: nausea and vomiting) Qty: 10 0RF ibuprofen 400 mg tablet 400 mg PO Q8H PRN (Reason: fever or pain) Qty: 30 0RF ibuprofen 400 mg tablet 400 mg PO Q8H PRN (Reason: fever or pain) Qty: 30 0RF loperamide [Imodium A-D] 2 mg capsule 2 mg PO Q6H PRN (Reason: loose stool) Qty: 14 0RF ondansetron 4 mg tablet,disintegrating 4 mg PO Q8H PRN (Reason: nausea and vomiting) Qty: 10 0RF Referrals: Justice Aguirre MD [Primary Care Provider, Family Practice] - In 1 week Problem List Clinical Impression: Neck pain, Acute neck sprain Patient/Caregiver Discharge Instructions Education Materials: ED Neck Pain Additional Instructions: Do not take Motrin as it is upsetting your stomach. Use Tylenol 500 mg 1 or 2 tabs every 6 hours as needed for pain. Bedrest for 2 days. Apply ice to the affected area 20 minutes 3 times a day as tolerated. Follow-up with your regular doctor in 2 to 3 days. Off work for 2 days. Print Language: Macanese Stand Alone Forms: Bryanna Award Info., Work/School Release, Patient Portal Info Letter
[2025-06-22 14:13] VITALS: BP 116/62; PULSE 68; RESP 18; TEMP 36.7; O2SAT 99
[2025-06-22 14:19] LABS: HCG Qualitative,Urine Negative
== END 2025-06-22 14:14 | disposition home or self-care (01) ==
PROVIDERS: Emergency Provider Family Medicine; PCP Family Medicine
DX: S13.4XXA Sprain of ligaments of cervical spine, initial encounter (principal); X50.0XXA Overexertion from strenuous movement or load, initial encounter
CPT/HCPCS: 72040; 81025; 99283; Q0162; A9270